=== PATIENT | male | born 1985 | race Hispanic/Latino ===

== ENCOUNTER 2021-06-03 22:17 | Emergency (ER) | payer OTHER ==
[~2021-06-03] VITALS: Ht 172.7 cm; Wt 75.7 kg
[2021-06-03 22:54] VITALS: BP 127/96
[2021-06-03] MEDS ORDERED: MORPHINE 4 MG SYG ONE (22:57)
[2021-06-03] MEDS ORDERED: ONDANSETRON 4MG INJ ONE (22:57)
[2021-06-03] MEDS ORDERED: MORPHINE 4 MG SYG IM ONE (23:00)
[2021-06-03] MEDS ORDERED: ONDANSETRON 4MG INJ IVP ONE (23:30)
[2021-06-04] MEDS ORDERED: PROPOFOL 10 MG/ML 20ML VIAL IV ONE (00:11)
[2021-06-04] MEDS ORDERED: IBUP-2070 PO (01:20)
[2021-06-04 02:00] VITALS: BP 131/80
== END 2021-06-04 01:30 | disposition home or self-care (01) ==
LOC: EDH 22:17
DX: S43.024A Posterior dislocation of right humerus, initial encounter (principal); S60.512A Abrasion of left hand, initial encounter; Z79.899 Other long term (current) drug therapy; S00.83XA Contusion of other part of head, initial encounter; X58.XXXA Exposure to other specified factors, initial encounter; Y93.89 Activity, other specified; Y92.89 Other specified places as the place of occurrence of the external cause; Y99.8 Other external cause status
CPT/HCPCS: 23650; 73030 ×2; 96372; 96374; 99285; J2270; J2405; J2704

== ENCOUNTER 2021-07-21 11:18 | Emergency (ER) | payer SELFPAY ==
[~2021-07-21] VITALS: Ht 172.7 cm; Wt 80.7 kg
[~2021-07-21 11:18] MED LIST: IBUP-2070 PO
[2021-07-21 11:21] VITALS: BP 111/52
== END 2021-07-21 12:41 | disposition left against medical advice (07) ==
LOC: EDH 11:18
DX: Z53.21 Procedure and treatment not carried out due to patient leaving prior to being seen by health care provider (principal)

== ENCOUNTER 2021-07-24 20:17 | Emergency (ER) | payer SELFPAY ==
[~2021-07-24] VITALS: Ht 172.7 cm; Wt 80.7 kg
[2021-07-24 21:25] VITALS: BP 131/89
[2021-07-24] MEDS ORDERED: HYDROCODONE/ACETAMINOPHEN 5/325 MG TAB PO STA (22:23)
[2021-07-24] MEDS ORDERED: AMOX500C2 PO (23:17)
[2021-07-24] MEDS ORDERED: IBUP-2088 PO (23:17)
== END 2021-07-24 23:27 | disposition home or self-care (01) ==
LOC: EDH 20:17
DX: S02.652A Fracture of angle of left mandible, initial encounter for closed fracture (principal); G89.29 Other chronic pain; M25.511 Pain in right shoulder; F17.200 Nicotine dependence, unspecified, uncomplicated; Z79.1 Long term (current) use of non-steroidal anti-inflammatories (NSAID); X58.XXXA Exposure to other specified factors, initial encounter; Y93.89 Activity, other specified; Y92.89 Other specified places as the place of occurrence of the external cause; Y99.8 Other external cause status
CPT/HCPCS: 70110